=== PATIENT | female | born 1950 | race Caucasian/White ===

== ENCOUNTER 2020-05-26 10:57 | Outpatient (REF) | payer MEDICARE, SELFPAY | END 2020-05-26 10:58 | disposition home or self-care (01) | LOC: HO.BBR 10:57 | PROVIDERS: PCP Internal Medicine; Visit Provider Internal Medicine | DX: D75.1 Secondary polycythemia (principal) | CPT/HCPCS: 85018 ==

== ENCOUNTER 2020-06-11 12:06 | Outpatient (REF) | payer MEDICARE, SELFPAY | END 2020-06-11 12:07 | disposition home or self-care (01) | LOC: HO.BBR 12:06 | PROVIDERS: PCP Internal Medicine; Visit Provider Internal Medicine | DX: D75.1 Secondary polycythemia (principal) | CPT/HCPCS: 85018; 99195 ==